=== PATIENT | female | born 1955 | race Caucasian/White ===

== ENCOUNTER → 2022-09-18 | Outpatient (CLI) | payer OTHER ==
--- NOTE | 2022-09-18 11:07 | CT ---
EXAMINATION TYPE: CT urogram wo/w con DATE OF EXAM: 09/18/2022 COMPARISON: None HISTORY: 66-year-old female N13.30, Hydronephrosis TECHNIQUE: Contiguous axial scanning of the abdomen and pelvis performed without and with IV Contrast , patient injected with 100ml mL of Isovue 370. Delayed images through the kidneys and bladder were o btained. Coronal/sagittal reconstructions performed. 3-D reconstructions generated on a dedicated wor kstation. CT DLP: 3474.4 mGycm Automated exposure control for dose reduction was used. FINDINGS: Heart upper limits of normal in size with trace pericardial fluid. Strandy atelectasis in the lower l ungs without pleural effusion. Tiny hiatal hernia. Lobulated 1.8 cm hypodensity anterior left liver lobe along the falciform ligament seems to have incr easing density/enhancement on the later phases. A second 2.0 cm lesion at the gallbladder fossa is indeterminate and may have some progressive enhanc ement as well. A third 1.1 cm lesion inferior right liver lobe shows some nodular early enhancement and is not well seen on later phases. The last of these is most characteristic of a hemangioma. The other 2 are indeterminate but may also represent hemangiomas. Short interval follow-up recommended to reassess. Liver ultrasound may be help ful to assess for an echogenic appearance to these lesions. Portal venous system is patent. No biliary ductal dilatation. 2.7 cm diverticulum of the second porti on of the duodenum projecting into the pancreatic head region. Kidneys show bilateral renal cortical cysts measuring up to 9 mm on the right and 1.4 cm on the left. Prominent parapelvic cysts within the right kidney measure up to 2.8 cm. There is severe left-sided hydronephrosis with associated renal cortical thinning. The left ureter it self appears to be normal caliber and on the latest phase, contrast in the left kidney has only be be gun pooling within the minor calyces. No suspicious renal mass is seen. The right collecting system is clear as is the right ureter. Adrenal glands, spleen, and pancreas show no gross abnormality. Tiny inferior splenule. No dilated small bowel, free fluid, or free air. No mesenteric or retroperitoneal lymphadenopathy. Normal appendix. Scattered mild stool. No pericolonic inflammatory change. Mid sigmoid diverticulosis . Numerous pelvic fluid was. Bladder urine distended. Prostate gland is small. No abnormal fluid collec tion in the pelvis or pelvic lymphadenopathy. Bones: Mild degenerative change of the hips. Mild degenerative changes left SI joint. Moderate degenerative disc disease throughout the lumbar spine with disc vacuum at all levels. Facet arthropathy mid to lower lumbar spine. IMPRESSION: 1. SEVERE LEFT-SIDED HYDRONEPHROSIS. ASSOCIATED MILD CORTICAL THINNING. ON THE LEFT, CONTRAST HAS ONL Y BEGUN COLLECTING IN THE MINOR CALYCES. THE ENTIRE COLLECTING SYSTEM AND LEFT URETER REMAIN NONOPACI FIED LIMITING EVALUATION. THE LACK OF ANY URETERAL DILATATION OR NEPHROLITHIASIS SUGGESTS LEFT-SIDED UPJ OBSTRUCTION. FURTHER WORKUP CLINICALLY INDICATED. 2. SMALL BILATERAL RENAL CORTICAL CYSTS MEASURING UP TO 1.4 CM. NUMEROUS PARAPELVIC CYSTS IN THE RIGH T KIDNEY MEASURING UP TO 2.8 CM. 3. APPROXIMATELY 3 LIVER LESIONS MEASURING UP TO 2.0 CM. A 1.1 CM LESION INFERIOR RIGHT LIVER LOBE IS MOST CHARACTERISTIC OF A BENIGN HEMANGIOMA. THE OTHER 2 LESIONS ARE INDETERMINATE BUT MAY ALSO REPRE SENT BENIGN HEMANGIOMAS. 6 MONTH FOLLOW-UP CONTRAST-ENHANCED CT TO ENSURE STABILITY. ALTERNATIVELY, C ONSIDER LIVER ULTRASOUND TO ATTEMPT FURTHER CHARACTERIZATION. 4. MILD MID SIGMOID DIVERTICULOSIS.
== END | disposition home or self-care (01) ==
LOC: RADCTMAIN 08:35
PROVIDERS: ATTEND Urology
DX: N28.1 Cyst of kidney, acquired (principal); K76.89 Other specified diseases of liver; K57.30 Diverticulosis of large intestine without perforation or abscess without bleeding; N13.2 Hydronephrosis with renal and ureteral calculous obstruction
CPT/HCPCS: 82565; 84520; 74178; 36415; 74400; Q9967

== ENCOUNTER → 2022-09-21 | Outpatient (CLI) | payer OTHER ==
[~2022-09-21] MED LIST: FUROSEMIDE 10 MG/ML 2 ML VIAL IV ONE
--- NOTE | 2022-09-21 15:40 | NM ---
EXAMINATION TYPE: NM lasix renogram DATE OF EXAM: 09/21/2022 CLINICAL INDICATION:Female, 66 years old with history of N13.30 hydronephrosis; COMPARISON: CT urogram 09/18/2022 Following administration of 10.6 mCi Tc 99m MAG3 with 20mg Lasix. Immediate images post injection FINDINGS: Left: 44.2 %. Right: 55.8 %. Max renal flow left: 28.0 minutes. Max renal flow right: 2.75 minutes. Satisfactory accumulation of radiotracer within both renal collecting systems. After the administrati on of Lasix, there is prompt excretion from the right collecting system. The left collecting system r etains radiotracer. Left kidney has a steadily rising graph. T 1/2 left: NA minutes. T 1/2 right: 27.5 minutes. IMPRESSION: 1. Left obstruction 2. Quantitative analysis as above.
== END | disposition home or self-care (01) ==
LOC: RADNMMAIN 12:49
PROVIDERS: ATTEND Urology
DX: K56.609 Unspecified intestinal obstruction, unspecified as to partial versus complete obstruction (principal)
CPT/HCPCS: 78708; A9562

== ENCOUNTER → 2024-07-31 | Outpatient (CLI) | payer OTHER ==
[2024-07-31 10:24] LABS: Appearance,Urine Clear (Clear); Bilirubin,Urine Negative (Negative); Blood,Urine Negative (Negative); Color,Urine Yellow (Yellow); Ketones,Urine Negative (Negative); Nitrite,Urine Negative (Negative); Specific Gravity,Urine 1.018 (1.001-1.030); Urobilinogen,Urine 0.2 E.U./DL
[2024-07-31 11:01] LABS: Basophils # (A) 0.01 X 10*3/uL (0.00-0.10); Basophils % (A) 0.2 %; Eosinophils # (A) 0.14 X 10*3/uL (0.04-0.35); Eosinophils % (A) 2.2 %; HCT 41.1 % (37.2-46.3); HGB 13.7 g/dL (12.0-15.0); Lymphocytes # (A) 2.34 X 10*3/uL (0.90-5.00); Lymphocytes % (A) 35.9 %; MCH 29.3 pg (27.0-32.0); MCHC 33.3 g/dL (32.0-37.0); MCV 87.8 FL (80.0-97.0); Mean Platelet Volume 9.7 FL (9.5-12.2); Monocytes # (A) 0.54 X 10*3/uL (0.20-1.00); Monocytes % (A) 8.3 %; NRBC Per 100 WBC 0 X 10*3/uL (0.00-0.01); Neutrophils # (A) 3.46 X 10*3/uL (1.80-7.70); Neutrophils % (A) 53.1 %; Platelet Count 263 X 10*3/uL (140-440); RBC 4.68 X 10*6/uL (4.10-5.20); RDW 13.6 % (11.5-14.5); WBC 6.51 X 10*3/uL (4.50-10.00)
[2024-07-31 11:15] LABS: BUN/Creat Ratio 16.91 Ratio (12.00-20.00); Blood Urea Nitrogen 18.6 mg/dL (9.0-27.0); Calcium 9.7 mg/dL (8.7-10.3); Carbon Dioxide 25.6 mmol/L (21.6-31.8); Chloride 108 mmol/L (96-109); Glucose 101 mg/dL (70-110); Sodium 142 mmol/L (135-145)
== END | disposition home or self-care (01) ==
LOC: LABWHC1 07:58
PROVIDERS: ATTEND Urology
DX: N13.30 Unspecified hydronephrosis (principal)
CPT/HCPCS: 36415; 80048; 81003; 85025; 87086

== ENCOUNTER 2024-08-04 13:12 | Day surgery (SDC) | payer OTHER ==
[2024-08-03 08:39] VITALS: BMI 38.4
--- NOTE | 2024-08-04 10:26 | P.HPIHPCON ---
History of Present Illness H&P Date: 08/04/24 Chief Complaint: Bilateral hydronephrosis This is a 68-year-old female who with a history of left UPJ obstruction, and a previous left-sided partial nephrectomy. She is status post left-sided pyeloplasty done at [facility] earlier this she developed resolution of pain following her pyeloplasty but now the pain has started to recur, underwent a renal ultrasound that showed evidence of bilateral hydronephrosis, discussed with her the option of doing a bilateral retrograde in the OR to further evaluate the bilateral hydronephrosis. Discussed if there is evidence of obstruction then we will proceed with ureteroscopy and balloon dilation at the same setting, she is aware of the risk which includes but not limited to bleeding, infection, injury to the ureter. Discussed if I do perform balloon dilation then we will place a stent on that side. She understood all the risks and agreed to proceed Consent for Procedure: I have explained the operation/procedure to the patient, including the risks, benefits, side effects, alternative therapies (including not receiving the proposed treatment or service), the likelihood of the patient achieving his/her goals, and potential recuperation problems for the procedure/sedation/analgesia, as well as any blood products, if indicated. I also explained to the patient the risks, benefits and side effects of the alternatives, as well as the risks related to not receiving the proposed procedure, care, treatment, or services. Past Medical History Past Medical History: Cancer, COPD, GERD/Reflux, Hypertension Additional Past Medical History / Comment(s): hydronephrosis,hx kidney CA,wears O2 @ 3L NC @ hs or napping,Covid infection x2-hospitalized for 5 days,anemia- following with Dr Jones,hx herniated disc, excess uterine bleeding History of Any Multi-Drug Resistant Organisms: None Reported Past Surgical History: Back Surgery, Hysterectomy Additional Past Surgical History / Comment(s): left partial kideny removal ureter relocated on left kidney Past Anesthesia/Blood Transfusion Reactions: No Reported Reaction Additional Past Anesthesia/Blood Transfusion Reaction / Comment(s): no hx blood transfusion Smoking Status: Former smoker - Past Family History Mother Family Medical History: Cancer Additional Family Medical History / Comment(s): non hodgkin's lymphoma Medications and Allergies Home Medications Medication Instructions Recorded Confirmed Type Budesonide/Glycopyr/Formoterol 2 puff INHALATION BID 08/03/24 08/03/24 History [Breztri Aerosphere Inhaler] Iron 25mg 1 dose PO DAILY 08/03/24 08/03/24 History Losartan-Hctz 50-12.5 mg [Hyzaar 1 tab PO QAM 08/03/24 08/03/24 History 50-12.5] Omeprazole [PriLOSEC] 20 mg PO AC-BRKFST 08/03/24 08/03/24 History Zinc 15mg 1 dose PO DAILY 08/03/24 08/03/24 History amLODIPine [Norvasc] 10 mg PO QAM 08/03/24 08/03/24 History Allergies Allergy/AdvReac Type Severity Reaction Status Date / Time No Known Allergies Allergy Verified 08/03/24 08:21 Surgical - Exam - General no distress, no pain - Eyes normal ocular movement, no pale - ENT normal nares, normal mucosa - Respiratory normal expansion, normal respiratory effort - Abdomen Abdomen: soft, non tender, no distended Assessment and Plan Assessment: OR for cystoscopy, bilateral retrograde pyelogram, possible ureteroscopy, with balloon dilation, and stent insertion
[2024-08-04] MEDS ORDERED: LIDOCAINE 1% (10MG/ML) FOR IV START INTRADERMA PRN (13:35)
[2024-08-04] MEDS ORDERED: droPERidol 5 MG/2 ML VIAL IVP ONE (13:35)
[2024-08-04] MEDS ORDERED: HYDROmorphone 0.5 MG/0.5 ML SYRINGE IVP PRN (13:35)
[2024-08-04 13:47] VITALS: RESP 16
[2024-08-04] MEDS: DEXAMETHASONE SOD PHOSPHATE 4 MG/ML 1 ML VIAL IV ONE (13:52)
[2024-08-04] MEDS: ONDANSETRON 4 MG/2 ML VIAL IVP ONE (13:52)
[2024-08-04] MEDS: LACTATED RINGERS 1,000 ML IV SCH (13:52)
[2024-08-04] MEDS: IV FLUID CONTINUATION 1,000 ML IV ONE (13:55)
--- NOTE | 2024-08-04 13:55 | XR ---
EXAMINATION TYPE: XR KUB DATE OF EXAM: 08/04/2024 1:30 PM CLINICAL INDICATION: Female, 68 years old with history of calculus; [facility] COMPARISON: None. TECHNIQUE: One radiographic view of the abdomen was obtained. FINDINGS: The bowel gas pattern is nonspecific without dilated loops of small or large bowel. . Fecal material and gas are demonstrated throughout the colon and rectum. There is no evidence for organomegaly or pneumoperitoneum. The osseous structures are intact. No ab normal calcifications are present. IMPRESSION: Nonspecific bowel gas pattern without radiographic evidence for acute process.
[2024-08-04] MEDS ORDERED: PROPOFOL 10 MG/ML 20 ML VIAL IV ONE (15:45)
[2024-08-04] MEDS ORDERED: SUCCINYLCHOLINE CHLORIDE 200 MG/10 ML VIAL IV ONE (15:45)
[2024-08-04] MEDS ORDERED: MIDAZOLAM 2 MG/2 ML VIAL ONE (15:45)
[2024-08-04] MEDS ORDERED: ALBUTEROL HFA INHALER INHALATION ONE (15:45)
[2024-08-04] MEDS ORDERED: fentaNYL (PF) 50 MCG/ML 2 ML AMP ONE (15:45)
[2024-08-04] MEDS ORDERED: LIDOCAINE 1% INJ 10MG/ML (20 ML MDV) ONE (15:45)
[2024-08-04] MEDS: IOPAMIDOL-370 100ML BTL MISCELLANE ONE (16:19)
[2024-08-04] MEDS: LACTATED RINGERS 1,000 ML IV ONE (16:26)
[2024-08-04 16:39] VITALS: TEMP 97
--- NOTE | 2024-08-04 16:54 | P.OP ---
Date of Procedure: 08/04/24 Preoperative Diagnosis: Bilateral hydronephrosis Postoperative Diagnosis: Same Procedure(s) Performed: Cystoscopy, bilateral retrograde pyelogram, left ureteral balloon dilation and stent insertion Implants: 6 Libyan by 26 cm stent in the left ureter Anesthesia: LILY Surgeon: William Acevedo Estimated Blood Loss (ml): 5 Pathology: none sent Condition: stable Disposition: PACU Indications for Procedure: This is a 68-year-old female who with a history of left UPJ obstruction, and a previous left-sided partial nephrectomy. She is status post left-sided pyeloplasty done at [facility] earlier this she developed resolution of pain following her pyeloplasty but now the pain has started to recur, underwent a renal ultrasound that showed evidence of bilateral hydronephrosis, discussed with her the option of doing a bilateral retrograde in the OR to further evaluate the bilateral hydronephrosis. Discussed if there is evidence of obstruction then we will proceed with ureteroscopy and balloon dilation at the same setting, she is aware of the risk which includes but not limited to bleeding, infection, injury to the ureter. Discussed if I do perform balloon dilation then we will place a stent on that side. She understood all the risks and agreed to proceed Operative Findings: Normal right retrograde pyelogram, along the left slight narrowing at the level of the anastomosis of the ureter to the level lower pole calyx. Slow drainage of the left collecting system Description of Procedure: Patient brought to the operating room, general anesthesia was induced. She was prepped and draped in sterile fashion and placed in dorsolithotomy position cystoscopy fitted with a 21 Libyan sheath was inserted per urethra, cystoscopy was performed showed no abnormality within the bladder attention was carried to the right ureteral orifice which was intubated with a 6 Libyan open-ended catheter, retrograde pyelogram was performed on that side which showed no evidence of any filling defect or hydronephrosis, delayed images was obtained which showed excellent drainage of contrast. Attention was then carried to the left side which was intubated with a 6 Libyan open-ended catheter, retrograde py elogram was performed on that side which showed a normal caliber ureter without any filling defect, at the level of the ureter to the left lower pole calyx anastomosis there was slight narrowing at that area with a dilated collecting system, delayed images were obtained which showed poor drainage of contrast, at this point a sensor wire was advanced through the ureteroscope and up the left ureteral orifice and all the way up to the kidney, next a 15 Libyan ureteral balloon dilator was passed over the wire and to the level of the anastomosis, the area of narrowing was dilated under fluoroscopy using the balloon dilator. At this time the balloon dilator was deflated and it was removed with the wire in place. Next a ureteral stent was passed over the wire, the proximal curl was realized on fluoroscopy and the distal curl was visualized in the cystoscope, there was a hydronephrotic drip seen from the stent. Patient was awakened from anesthesia and taken to recovery in stable condition, at this time she will follow-up in 4 weeks for a cystoscopy stent removal
[2024-08-04] MEDS: KETOROLAC 15 MG/ML 1 ML VIAL IVP SCH (17:41)
[2024-08-04 17:42] VITALS: BP 134/79; PULSE 73
--- NOTE | 2024-08-31 16:24 | FL ---
EXAMINATION TYPE: FL urography retrograde DATE OF EXAM: 08/04/2024 4:29 PM COMPARISON: Pre Operative Images if available both CT/MRI or plain film CLINICAL INDICATION: Female, 68 years old with history of CYSTO BILATERAL HYDRONEPHROSIS; TECHNIQUE: FL urography retrograde, multiple fluoroscopic images provided for procedure. Total fluoroscopy time: 74.6 seconds Total submitted images to PACS: 4 DAP: 1.91 mGym2 Gycm2 uGym2 cGycm2 or equivalent. FINDINGS: Fluoroscopic images during retrograde pyelogram demonstrate contrast in the renal collecting system. There is dilation of the collecting system. No evidence of extravasation of contrast. No immediate co mplication identified. IMPRESSION: 1. No evidence for intraoperative complication. 2. Please see the operative/procedural note for further details. [facility], , 08/31/2024 4:22 PM
== END 2024-08-04 18:05 | disposition home or self-care (01) ==
LOC: OR 13:12
PROVIDERS: ATTEND Urology
DX: N13.30 Unspecified hydronephrosis (principal); Z90.5 Acquired absence of kidney; J44.9 Chronic obstructive pulmonary disease, unspecified; I10 Essential (primary) hypertension; K21.9 Gastro-esophageal reflux disease without esophagitis; Z85.528 Personal history of other malignant neoplasm of kidney; Z87.891 Personal history of nicotine dependence; Z79.51 Long term (current) use of inhaled steroids; Z79.899 Other long term (current) drug therapy
CPT/HCPCS: 74018; 74420

== ENCOUNTER → 2024-10-26 | Outpatient (CLI) | payer OTHER ==
--- NOTE | 2024-10-26 08:47 | NM ---
EXAMINATION TYPE: NM lasix renogram DATE OF EXAM: 10/26/2024 COMPARISON: 09/21/2022 CLINICAL INDICATION: Female, 69 years old with history of N13.30 Hydronephrosis; Following administration of 10 mCi Tc 99m MAG3 with 20mg Lasix. Immediate images post injection FINDINGS: Left: 46.4 %. Right: 53.6 %. Max renal flow left: 6 minutes. Max renal flow right: 2.5 minutes. Satisfactory accumulation of radiotracer within both renal collecting systems. After the administrati on of Lasix, there is prompt excretion from right collecting systems with mildly delayed left excreti on after Lasix. T 1/2 left: 16.2 minutes. T 1/2 right: 25.1 minutes. IMPRESSION: No evidence for obstruction mild dilation of the left collecting system compared to the right. [facility], , 10/26/2024 8:45 AM
== END | disposition home or self-care (01) ==
LOC: RADNMMAIN 06:57
PROVIDERS: ATTEND Urology
DX: N13.30 Unspecified hydronephrosis (principal)
CPT/HCPCS: 78708; A9562

== ENCOUNTER → 2025-04-15 | Outpatient (CLI) | payer OTHER ==
--- NOTE | 2025-04-15 09:07 | CT ---
EXAMINATION TYPE: CT abdomen pelvis wo con DATE OF EXAM: 04/15/2025 8:39 AM COMPARISON: 09/18/2022 CLINICAL INDICATION: Female, 69 years old with history of N28.9 KNOWN RENAL DISEASE, N18.31 CKD STAGE 3A; history of renal cancer TECHNIQUE: CT of the abdomen and pelvis without IV contrast. Sagittal and coronal reformats were crea karen on a separate workstation. Oral contrast used: with Oral Contrast CT DLP: 1092 mGycm, Automated exposure control for dose reduction was used. FINDINGS: LOWER CHEST: Heart borderline enlarged. Trace anterior basilar pericardial fluid. Calcified granuloma right infrahilar region. Bilateral scattered areas of strandy and patchy atelectasis. ABDOMEN LIVER: Unremarkable GALLBLADDER AND BILE DUCTS: Unremarkable. PANCREAS: Unremarkable. SPLEEN: Unremarkable. ADRENAL GLANDS: Unremarkable. KIDNEYS AND URETERS: Multiple cortical lesions left kidney: An indeterminate 1.2 cm cortical lesion upper pole may be new. 1.0 cm indeterminate cortical lesion anterior upper to mid pole unchanged suggesting uncomplicated cy st. 1.4 cm indeterminate cortical lesion posterior midpole previously measured 6 mm. Suspect uncomplicate d cyst but should be followed. Tiny 1 cm cortical cyst posterior mid to lower pole noted. There is left-sided pelviectasis and transition at the UPJ. Some underlying stricture is difficult to exclude. Right kidney shows a 1.1 cm cortical cyst posterior mid to lower pole. Prominent parapelvic cysts brenden suring up to 3.2 cm are noted. PELVIS BLADDER: Mild circumferential bladder wall thickening. Pelvic phleboliths. REPRODUCTIVE: Uterus surgically absent. Neither ovary well seen. No abnormal fluid collection in the pelvis or pelvic lymphadenopathy. Pelvic floor relaxation noted. ABDOMEN & PELVIS STOMACH AND BOWEL: 2.5 cm diverticulum of the second portion of the duodenum projecting into the panc reatic head region. No evidence of bowel obstruction. Oral contrast progressed to the splenic flexure of the colon. Scattered mild stool. Sigmoid diverticulosis. No pericolonic inflammatory change. Cecu m hangs low into the pelvis. Normal appendix. PERITONEUM/RETROPERITONEUM: No evidence of pneumoperitoneum or free fluid. VASCULATURE: No evidence of aortic aneurysm. MUSCULOSKELETAL: Scattered moderate degenerative disc disease throughout the lumbar spine. No osseous destructive process. LYMPH NODES: A couple prominent clustered lymph nodes right lower quadrant measuring up to 9 mm see i mage 11 present previously as well. Otherwise, no mesenteric or retroperitoneal adenopathy seen. SOFT TISSUE/ABDOMINAL WALL: Unremarkable IMPRESSION: 1. Compared to 2021, improvement in the previous left-sided hydronephrosis. Some pelviectasis remain s. Consider an underlying mild UPJ stricture. 2. A number of indeterminate cortical lesions on the left. 2 of these are either new or larger and sh ould be reassessed at a 6 month follow-up CT. Complicated cysts or small solid tumors are in the diff erential. The former is favored. 3. Prominent parapelvic cysts redemonstrated right kidney measuring up to 3.2 cm. 4. Mild circumferential bladder wall thickening. Correlate to exclude cystitis. 5. Pelvic floor relaxation. Sigmoid diverticulosis. [facility], , 04/15/2025 9:05 AM
== END | disposition home or self-care (01) ==
LOC: RADCTMAIN 06:57
PROVIDERS: ATTEND Family Medicine
DX: N28.9 Disorder of kidney and ureter, unspecified (principal); N18.31 Chronic kidney disease, stage 3a; N13.30 Unspecified hydronephrosis; N28.89 Other specified disorders of kidney and ureter; K57.30 Diverticulosis of large intestine without perforation or abscess without bleeding; N28.1 Cyst of kidney, acquired
CPT/HCPCS: 74176

== ENCOUNTER → 2025-06-08 | Outpatient (CLI) | payer OTHER ==
--- NOTE | 2025-06-08 19:50 | US ---
EXAMINATION TYPE: US kidneys/renal and bladder DATE OF EXAM: 06/08/2025 COMPARISON: CT 04/15/25 CLINICAL INDICATION: Female, 69 years old with history of N21.8 RENAL CYST; F/U CT Renal cysts. Hx ca ncer on left side 2003. TECHNIQUE: Grayscale imaging of the bilateral kidneys and urinary bladder: FINDINGS: EXAM MEASUREMENTS: Right Kidney: 10.5x5.8x5.0 cm Left Kidney: 10.6x4.5x6.6 cm Right Kidney: No hydronephrosis. No shadowing calculus or solid mass. Corticomedullary differentiatio n is maintained. Previously visualized 1.0cm cortical cyst now measures 1.5x1.2x1.3cm. Previously visualized 3.2cm parapelvic cyst now measures 3.4x3.3x1.5cm. Sonographic appearance may kemp ggest this area represents mild pelviectasis vs. peripelvic cysts or combination. Left Kidney: No hydronephrosis. No shadowing calculus or solid mass. Corticomedullary differentiation is maintained. Previously visualized simple appearing superior pole cyst now measures 1.2x0.9x1.2cm Previously visualized mid pole septated cystic area mid pole cyst measures 1.8x1.8x1.7cm Previously visualized mid pole simple appearing cyst now measures 1.2x0.9x1.2cm mild inferior pole pelvic dilation (per pt. Ureteroplasty/anastomosis of ureter to lower pole of kidn ey) Bladder: wnl Bilateral Jets seen: Yes exam is limited by habitus, bowel gas, and rib shadows IMPRESSION: 1. No hydronephrosis or nephrolithiasis. 2. Bilateral renal cysts with right-sided mild pelviectasis versus parapelvic cysts combination. Mild inferior left renal pole pelvic dilatation. [facility], , 06/08/2025 7:48 PM
== END | disposition home or self-care (01) ==
LOC: RADUSWWP 15:53
PROVIDERS: ATTEND Family Medicine
DX: N21.8 Other lower urinary tract calculus (principal); N28.1 Cyst of kidney, acquired
CPT/HCPCS: 76770